=== PATIENT | female | born 1950 | race Caucasian/White ===

== ENCOUNTER 2016-06-24 21:19 | Emergency (ER) | payer MEDICARE, OTHER ==
[~2016-06-24] VITALS: Ht 162.6 cm; Wt 101.6 kg
[2016-06-24] MEDS ORDERED: FAMOTIDINE (20 MG) 20 MG TABLET ONE (22:16)
[2016-06-24] MEDS ORDERED: TRAMADOL HCL 50 MG TABLET ONE (22:16)
[2016-06-24] MEDS ORDERED: FAMOTIDINE (20 MG) 20 MG TABLET PO ONE (22:30)
[2016-06-24] MEDS ORDERED: TRAMADOL HCL 50 MG TABLET PO ONE (22:30)
[2016-06-25] VITALS: BP 132/72
== END 2016-06-25 | disposition home or self-care (01) ==
LOC: ER 21:20 → EDBD 21:20 → ER 06-25
DX: J06.9 Acute upper respiratory infection, unspecified (principal); K21.9 Gastro-esophageal reflux disease without esophagitis; I10 Essential (primary) hypertension; J02.9 Acute pharyngitis, unspecified; Z88.0 Allergy status to penicillin
CPT/HCPCS: 71010-TC; A4606; Z7610